=== PATIENT | female | born 2000 | race African-American/Black ===

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

== ENCOUNTER 2024-10-17 10:36 | Emergency (ER) | payer MEDICAID ==
[~2024-10-17 10:36] MED LIST: DOXY100C5 MT
[2024-10-17 10:38] VITALS: PULSE 99; RESP 16; O2SAT 99
== END 2024-10-17 11:50 | disposition left against medical advice (07) ==
LOC: ER 10:36
DX: R11.2 Nausea with vomiting, unspecified (principal); Z53.21 Procedure and treatment not carried out due to patient leaving prior to being seen by health care provider